=== PATIENT | female | born 1985 ===

== ENCOUNTER 2019-06-22 05:14 | Emergency (ER) | payer SELFPAY ==
[~2019-06-22] VITALS: Ht 162.6 cm; Wt 55.6 kg
[2019-06-22 05:16] VITALS: BP 121/63
--- NOTE | 2019-06-22 06:27 | NUR ---
Pt was here w/ another pt. Other pt was d/c and this pt would not like to be seen. No provider has seen her yet.
== END 2019-06-22 06:30 | disposition left against medical advice (07) ==
LOC: ED 06:15
DX: R51 Headache (principal); Z53.21 Procedure and treatment not carried out due to patient leaving prior to being seen by health care provider

== ENCOUNTER 2020-08-20 00:40 | Inpatient (IN) | payer OTHER ==
[~2020-08-20] VITALS: Ht 162.6 cm; Wt 61.3 kg
[2020-08-20] MEDS ORDERED: LABETALOL 5MG/ML, 20ML ONE (01:51)
[2020-08-20] MEDS ORDERED: TERBUTALINE 1 MG/ML, 1ML ONE ×2 (01:51→01:59)
[2020-08-20] MEDS ORDERED: hydrALAzine 20 MG/ML, 1ML IVPush ONE (02:00)
[2020-08-20] MEDS ORDERED: LABETALOL 5MG/ML, 20ML IVPush PRN ×3 (02:00)
[2020-08-20] MEDS ORDERED: TERBUTALINE 1 MG/ML, 1ML SQ ONE (02:00)
[2020-08-20 02:02] LABS: BASOPHILS % (AUTO) 1 % (0-1); EOSINOPHILS % (AUTO) 1 % (1-7); LYMPHOCYTES % (AUTO) 22 % (22-44); MEAN CORPUSCULAR HEMOGLOBIN 27.9 pg (27.0-34.8); MEAN CORPUSCULAR HGB CONC 33.6 g/dL (32.4-35.8); MEAN PLATELET VOLUME 8.7 fL (7.4-10.4); MONOCYTES % (AUTO) 6 % (2-9); NEUTROPHILS % (AUTO) 70 % (42-75); PLATELET COUNT 350 x10^3/uL (130-400); RED BLOOD COUNT 4.61 x10^6/uL (3.82-5.3); RED CELL DISTRIBUTION WIDTH 14.2 % (9.6-15.2)
[2020-08-20 02:06] LABS: MD NO
[2020-08-20 02:16] LABS: ALANINE AMINOTRANSFERASE 14 U/L (12-78); ALBUMIN 1.7 g/dL (3.4-5.0); ANION GAP 5 mmol/L (5-15); BILIRUBIN, DIRECT < 0.1 mg/dL (0.1-0.2); CALCIUM 8.2 mg/dL (8.5-10.1); CHLORIDE 108 mmol/L (98-107); CREATININE 0.72 mg/dL (0.55-1.02)
[2020-08-20 02:21] LABS: ALKALINE PHOSPHATASE 224 U/L (45-117); BILIRUBIN,TOTAL 0.1 mg/dL (0.2-1.0)
[2020-08-20] MEDS ORDERED: LIDOCAINE 1%, 20ML ONE (02:27)
[2020-08-20] MEDS ORDERED: NEWBORN KIT ONE (02:27)
[2020-08-20] MEDS ORDERED: OXYTOCIN 30U/ 0.9% NaCL 500ML 500 ML ONE ×2 (02:28→07:21)
[2020-08-20] MEDS ORDERED: MISOPROSTOL 200 MCG TABLET ONE (02:28)
[2020-08-20] MEDS ORDERED: BETAMETHASONE 6 MG/ML, 5ML IM ONE ×2 (02:30→05:00)
[2020-08-20] MEDS ORDERED: MAGNESIUM SULF. PMX 20GM/500ML 500 ML IV ONE ×2 (03:05→15:08)
[2020-08-20] MEDS ORDERED: hydrALAzine 20 MG/ML, 1ML ONE (03:06)
[2020-08-20 03:23] LABS: MICROSCOPIC AUTO
[2020-08-20 03:33] LABS: AMPHETAMINE SCREEN, URINE Negative (Negative); BARBITURATE SCREEN, URINE Negative (Negative); BENZODIAZEPINE SCREEN, URINE Negative (Negative); CANNABINOID SCREEN, URINE Negative (Negative); COCAINE SCREEN, URINE Negative (Negative); METHADONE SCREEN, URINE Negative (Negative); OPIATE SCREEN, URINE Positive (Negative); PROTEIN/CREATININE RATIO,URINE 7636 (0-200); TOTAL PROTEIN,URINE RANDOM 210 mg/dL (0-12)
[2020-08-20] MEDS ORDERED: OXYcodone/APAP 5/325MG TABLET ONE (03:52)
[2020-08-20] MEDS ORDERED: IBUPROFEN 600 MG TABLET ONE (03:52)
[2020-08-20] MEDS ORDERED: ACETAMINOPHEN 325 MG TABLET PO PRN ×2 (04:00→16:30)
[2020-08-20] MEDS ORDERED: MISOPROSTOL 200 MCG TABLET PR PRN (04:00)
[2020-08-20] MEDS ORDERED: ONDANSETRON 2MG/ML, 2ML IV PRN (04:00)
[2020-08-20] MEDS ORDERED: OXYTOCIN 30U/ 0.9% NaCL 500ML 500 ML IV SCH (04:00)
[2020-08-20] MEDS ORDERED: SIMETHICONE 80 MG CHEW TAB PO PRN (04:00)
[2020-08-20] MEDS ORDERED: MAGNESIUM SULFATE PMX 4GM/100M 100 ML IVPB ONE (04:00)
[2020-08-20] MEDS ORDERED: DOCUSATE 100 MG CAPSULE PO PRN (04:00)
[2020-08-20] MEDS: IBUPROFEN 600 MG TABLET PO PRN (04:07)
[2020-08-20] MEDS: OXYcodone/APAP 5/325MG TABLET PO PRN (04:07)
[2020-08-20] MEDS ORDERED: MAGNESIUM SULFATE PMX 4GM/100M 100 ML ONE (04:12)
[2020-08-20] MEDS ORDERED: LABETALOL 5MG/ML, 20ML IVPush ONE (05:00)
[2020-08-20] MEDS ORDERED: PENICILLIN GK 5,000,000 UNITS in DEXTROSE 5% 100 ML IV ONE (05:00)
[2020-08-20] MEDS ORDERED: hydrALAzine 20 MG/ML, 1ML IV ONE (05:30)
[2020-08-20] MEDS ORDERED: LABETALOL 200 MG TABLET ONE ×2 (06:29→17:32)
[2020-08-20] MEDS: LABETALOL 200 MG TABLET PO SCH ×2 (06:31→18:02)
[2020-08-20] MEDS: PRENATAL VIT/IRON/FA 1 EACH TABLET PO SCH (09:00)
[2020-08-20 11:35] LABS: BASOPHILS % (AUTO) 1 % (0-1); EOSINOPHILS % (AUTO) 0 % (1-7); LYMPHOCYTES % (AUTO) 6 % (22-44); MEAN CORPUSCULAR HEMOGLOBIN 27.9 pg (27.0-34.8); MEAN CORPUSCULAR HGB CONC 33.7 g/dL (32.4-35.8); MEAN PLATELET VOLUME 8.2 fL (7.4-10.4); MONOCYTES % (AUTO) 1 % (2-9); NEUTROPHILS % (AUTO) 93 % (42-75); PLATELET COUNT 353 x10^3/uL (130-400); RED BLOOD COUNT 4.73 x10^6/uL (3.82-5.3); RED CELL DISTRIBUTION WIDTH 14.5 % (9.6-15.2)
[2020-08-20 12:18] LABS: MD SCAN
[2020-08-20] MEDS: MAGNESIUM SULF. PMX 20GM/500ML 500 ML IV SCH ×2 (14:00→15:16)
[2020-08-20] MEDS ORDERED: ACETAMINOPHEN 325 MG TABLET ONE ×2 (16:12→21:09)
[2020-08-20] MEDS ORDERED: LACTATED RINGERS 1,000 ML IV SCH (19:00)
[2020-08-20] MEDS: LACTATED RINGERS 1,000 ML IV SCH (19:00)
[2020-08-21] MEDS: MAGNESIUM SULF. PMX 20GM/500ML 500 ML IV SCH
[2020-08-21] MEDS: LACTATED RINGERS 1,000 ML IV SCH (05:00)
[2020-08-21 07:41] VITALS: BP 143/79
[2020-08-21] MEDS: LABETALOL 200 MG TABLET PO SCH ×2 (08:01→18:26)
[2020-08-21] MEDS: OXYcodone/APAP 5/325MG TABLET PO PRN ×2 (08:01→12:01)
[2020-08-21] MEDS: IBUPROFEN 600 MG TABLET PO PRN ×3 (08:01→16:40)
[2020-08-21] MEDS: PRENATAL VIT/IRON/FA 1 EACH TABLET PO SCH (08:02)
[2020-08-21 11:55] VITALS: BP 119/77
[2020-08-21 16:10] VITALS: BP 146/93
[2020-08-21 20:10] VITALS: BP 141/90
[2020-08-22] MEDS: LABETALOL 200 MG TABLET PO SCH (06:35)
[2020-08-22 06:36] VITALS: BP 135/84
[2020-08-22] MEDS: PRENATAL VIT/IRON/FA 1 EACH TABLET PO SCH (09:00)
[2020-08-22] MEDS ORDERED: LABE200T6 PO (12:55)
== END 2020-08-22 13:25 | disposition home or self-care (01) | DRG 807 ==
LOC: LDOP 00:40 → EDIP 02:07 → LDIP 02:09 → 2NE 08:52 → 2NW 08-21 07:47
PROVIDERS: ADMIT Obstetrics & Gynecology; ATTEND Obstetrics & Gynecology
PROC: 10E0XZZ Delivery of Products of Conception, External Approach (ICD-10-PCS; principal; 2020-08-20)
DX: O60.14X0 Preterm labor third trimester with preterm delivery third trimester, not applicable or unspecified (principal); Z37.0 Single live birth; O14.14 Severe pre-eclampsia complicating childbirth; Z3A.34 34 weeks gestation of pregnancy; Z20.822 Contact with and (suspected) exposure to COVID-19
CPT/HCPCS: 36415; 76805; 80053; 80307; 81001; 82248; 82570; 82962; 83735; 84156; 84550; 85025; 86592; 86762; 86803; 86850; 86900; 87081; 87086; 87340; 87635; 87806; 88305; G0378; J0702; J2540; G0475; J0360; J3105; J3475; J7120